=== PATIENT | female | born 1970 | race Caucasian/White ===

== ENCOUNTER → 2016-05-04 | Day surgery (SDC) | payer OTHER ==
[~2016-05-04] VITALS: Ht 165.1 cm; Wt 108.9 kg
--- NOTE | 2016-05-04 09:24 | RADIOLOGY REPORT ---
EXAMINATION: CHEST 1 VIEW CLINICAL INFORMATION: Postop. Aspiration. COMPARISON: None. TECHNIQUE: An AP view of the chest is provided. FINDINGS: The cardiac silhouette is not enlarged. The mediastinal and hilar contours are unremarkable. There are neither pleural effusions nor pneumothoraces. There are no consolidations. The osseous structures are unremarkable. IMPRESSION: No evidence for acute disease.
--- NOTE | 2016-05-04 16:17 | Operative Report ---
Operative/Inv Procedure Report Surgery Date: 05/04/16 Name of Procedure: urethral sling, cystoscopy Pre-Operative Diagnosis: stress incontinence Post-Operative Diagnosis: same Estimated Blood Loss: 50ml to 100ml Surgeon/Mussel Farmer: BILL ZAYAS MD Anesthesia: general endotracheal tube Implants: vaginal mesh Complications: aspiration Condition: stable Operative Indication: stress incontinence Operative/Procedure Note Note: This is an operative dictation on patient Jennifer Esparza. She was identified in the holding area and consented for urethral sling and cystoscopy. The risks benefits and alternatives of the surgery were given to the patient and all answer questions were answered. Patient was taken to the operating room placed on the operating table in the supine position. Once timeout was performed and IV sedation was given IV antibiotics were infused. Patient was shaved and then prepped and draped in the standard sterile fashion in the dorsal lithotomy position. A Hayes catheter was placed in the beginning of the surgery and the bladder was emptied. The Hayes was clamped and placed on the patient's abdomen. 1% lidocaine was with epinephrine was infiltrated into the anterior vaginal wall. A suburethral incision was made taking care not to injure the urethra. The vaginal flaps are created taking care not to injure the urethra. The Ultracet urethral sling kit was then opened and the trochars provided by the kit was then used to place the mini sling in the patient's left side followed by the right side. The tensioning Prolene loop was used to tighten the sling in a [id number] manner and was lying in a flat orientation. The tightening Prolene suture was then cut. There was copiously irrigated with bacitracin irrigation. The incision was closed with running locking 3-0 Vicryl suture. All catheter was removed and cystoscopy was performed. Bladder was globally inspected and there were no abnormalities appreciated in the bladder or the urethra. Ureteral orifices were in their normal anatomic position. Patient was cleaned at the Betadine solution the bladder was emptied. Sponge and needle count were correct at the end of the case. Findings: No mesh in the bladder or urethra on cystoscopy. No mesh in the vaginal fornices. Discharge Disposition: PACU
== END ==
LOC: STS 01:51
DX: N39.3 Stress incontinence (female) (male) (principal); Z87.891 Personal history of nicotine dependence
CPT/HCPCS: 1263; C1771; J0744; J2250; J2405